=== PATIENT | male | born 1975 | race Caucasian/White ===

== ENCOUNTER 2021-03-01 11:31 | Emergency (ER) | payer SELFPAY ==
[2021-03-01 12:23] LABS: BASOPHIL 0.3 % (0-2); EOSINOPHIL 0 % (0-5); HGB 16.3 g/dl (13.2-18.0); LYMPHOCYTE 30.9 % (15-48); MCH 30.9 pg (25.0-31.0); MCHC 34.7 g/dL (32.0-36.0); MPV 10.4 fL (6.0-9.5); NEUTROPHIL 53.5 % (41-80); NRBC 0; PLT 129 K/uL (150-400); RBC 5.28 M/uL (4.70-6.00); RDW 11.9 % (11.5-14.0); WBC 3.7 K/uL (4.0-10.5)
[2021-03-01 12:37] LABS: ALBUMIN 3.4 g/dL (3.4-5.0); BILIRUBIN - TOTAL 0.6 mg/dL (0.2-1.0); BUN/CREAT RATIO (CALC) 7.4 RATIO; CREATININE 0.81 mg/dL (0.67-1.17); GLOBULIN (CALCULATION) 4.2 g/dL; POTASSIUM 3.5 mmol/L (3.5-5.1); TOTAL PROTEIN 7.6 g/dL (6.4-8.2)
[2021-03-01] MEDS ORDERED: CARAFATE1 GM PO (13:10)
[2021-03-01] MEDS ORDERED: OMEPRAZOLE40 MG PO (13:10)
[2021-03-01] MEDS ORDERED: ZOFRAN4 M1 PO (13:11)
== END 2021-03-01 14:40 | disposition home or self-care (01) ==
LOC: FER 11:31
PROVIDERS: Internal Medicine
DX: K27.4 Chronic or unspecified peptic ulcer, site unspecified, with hemorrhage (principal); N20.0 Calculus of kidney; Z88.1 Allergy status to other antibiotic agents; Z87.891 Personal history of nicotine dependence; Z87.11 Personal history of peptic ulcer disease
CPT/HCPCS: 36415; 80053; 83690; 85025; J2405